=== PATIENT | female | born 1995 | race Caucasian/White ===

== ENCOUNTER 2019-08-10 01:44 | Emergency (ER) | payer OTHER ==
[~2019-08-10] VITALS: Ht 172.7 cm; Wt 63.5 kg
[2019-08-10 02:17] LABS: *BILIRUBIN,URIN NEGATIVE (NEGATIVE); *BLOOD, URINE 3+ (NEGATIVE); *CLARITY,URINE CLOUDY (CLEAR); *KETONES,URINE NEGATIVE (NEGATIVE); *UROBILINOGEN,URINE 0.2 E.U./dl (NORMAL); LEUKOCYTE ESTERASE ,URINE 1+ (NEGATIVE); NITRITE, URINE POSITIVE (NEGATIVE); PH,URINE 8.5 (5.0-8.0); UGLUCOSE TRACE (NEGATIVE)
[2019-08-10 02:20] LABS: *COLOR,URINE DARK YELLOW (YELLOW)
[2019-08-10 02:21] LABS: *URINE HCG, QUAL NEGATIVE (NEGATIVE)
[2019-08-10 02:29] LABS: RBC,URINE 80-100 /HPF (0-3); WBC,URINE 80-100 /HPF (0-3)
[2019-08-10 02:30] LABS: BACTERIA,URINE MODERATE /HPF (NONE SEEN); SQUAMOUS EPITHELIAL CELL,UR MODERATE /HPF (NONE SEEN)
[2019-08-10] MEDS: IBUPROFEN 600 MG TABLET PO ONE (02:39)
[2019-08-10] MEDS: PHENAZOPYRIDINE HCL 100 MG TABLET PO ONE (02:39)
[2019-08-10] MEDS: ACETAMINOPHEN ES 500 MG TABLET PO ONE (02:39)
[2019-08-10] MEDS ORDERED: ACETAMINOPHEN ES 500 MG TABLET ONE (02:40)
[2019-08-10] MEDS ORDERED: PHENAZOPYRIDINE HCL 100 MG TABLET ONE (02:40)
[2019-08-10] MEDS ORDERED: IBUPROFEN 600 MG TABLET ONE (02:40)
[2019-08-10] MEDS: CEphaleXIN 500 MG CAPSULE PO ONE (02:45)
[2019-08-10] MEDS ORDERED: CEphaleXIN 500 MG CAPSULE ONE (02:48)
--- NOTE | 2019-08-10 02:50 | NUR ---
Patient discharged to home in stable conditon. Written and verbal after care instructions given. Patient verbalizes understanding of instructions. AMBULATORY W/ STABLE GAIT ALL BELONGINGS W/ PT
[2019-08-10 02:58] VITALS: BP 130/83
== END 2019-08-10 02:59 | disposition home or self-care (01) ==
LOC: ER 01:52
DX: N39.0 Urinary tract infection, site not specified (principal)
CPT/HCPCS: 84703; 87077; 87086; A4663; A9150